=== PATIENT | male | born 1990 ===

== ENCOUNTER 2022-03-11 11:29 | Inpatient (IN) | payer MEDICAID, OTHER ==
[2022-03-11] MEDS ORDERED: LORazepam 1 MG TAB PO PRN (12:49)
[2022-03-11] MEDS ORDERED: MAGNESIUM HYDROXIDE 2,400 MG/10 ML CUP PO PRN (12:49)
[2022-03-11] MEDS ORDERED: HALOPERIDOL LACTATE 5 MG/ML 1 ML VIAL IM PRN (12:49)
[2022-03-11] MEDS ORDERED: ACETAMINOPHEN TAB 325 MG TAB PO PRN (12:49)
[2022-03-11] MEDS ORDERED: MAG HYDROX/AL HYDROX/SIMETH 30 ML CUP PO PRN (12:49)
[2022-03-11] MEDS ORDERED: LORazepam 2 MG/ML INJ IM PRN (12:53)
[2022-03-11 16:48] VITALS: BP 117/68; PULSE 83; RESP 16; TEMP 97.4
--- NOTE | 2022-03-12 01:38 | P.CONS ---
History of Present Illness - Reason for Consult Consult date: 03/11/22 - History of Present Illness Patient is a 31-year-old male with a PMH of schizophrenia who was transferred from [facility] where he had presented previously for psychosis. The patient was seen in the mental health unit. He was guarded during the interview and did not offer any complaints. He reported hearing voices but did not wish to elaborate further. He denied experiencing chest discomfort, shortness of breath, fever, chills, cough, nausea, vomiting, abdominal pain, diarrhea. He also denied tobacco or alcohol use. Denied any substance use as well. Review of systems: Pertinent positives and negatives as discussed in HPI, a complete review of systems was performed and all other systems are negative. Physical examination: General: non toxic, no distress, appears at stated age, normal weight Derm: no unusual rashes/lesions no unusual ecchymoses, warm, dry Head: atraumatic, normocephalic, symmetric Eyes: EOMI, no lid lag, anicteric sclera, pupils equal round reactive to light ENT: Nose and ears atraumatic, no thrush, no pharyngeal erythema Cardiovascular: S1S2 reg, no murmur, positive posterior tibial pulse bilateral, no edema, capillary refill less than 2 seconds Lungs: CTA bilateral, no rhonchi, no rales , no accessory muscle use Abdominal: soft, nontender to palpation, no guarding Ext: no gross muscle atrophy, muscle strength 5 out of 5 in all 4 extremities grossly, no contractures, Neuro: CN II-XI grossly intact, light touch intact all 4 extremities, finger to nose within normal limits, Psych: Alert, oriented, guarded affect Assessment/plan Psychosis -As per psychiatry Thank you for allowing us to participate in the care of this patient. We will follow peripherally. Do not hesitate to contact us with questions. Someone can be reached from the [facility] hospitalist group at all hours of the day at [phone]. Past Medical History - Past Family History Father Family Medical History: Hypertension Medications and Allergies Home Medications Medication Instructions Recorded Confirmed Type fluPHENAZine [Prolixin 5MG] 10 mg PO HS 03/11/22 03/11/22 History Allergies Allergy/AdvReac Type Severity Reaction Status Date / Time Fish Containing Products Allergy Unknown Verified 03/11/22 12:48 [Fish] Physical Exam Vitals: Vital Signs Temp Pulse Resp BP Pulse Ox 03/11/22 16:45 97.4 F L 83 16 117/68 98 Intake and Output 03/11/22 03/11/22 03/12/22 14:59 22:59 06:59 Other: Weight 70.465 kg
--- NOTE | 2022-03-12 12:36 | P.HP ---
Psychiatric H&P - . H&P Date: 03/12/22 History & Physical: Allergies Allergy/AdvReac Type Severity Reaction Status Date / Time Fish Containing Products Allergy Unknown Verified 03/11/22 12:48 Fish Vital Signs Temp 97.4 F L 03/11/22 16:45 Pulse 83 03/11/22 16:45 Resp 16 03/11/22 16:45 BP 117/68 03/11/22 16:45 Pulse Ox 98 03/11/22 16:45 FiO2 Intake & Output 03/11/22 03/12/22 03/12/22 18:59 06:59 18:59 Weight 70.465 kg Laboratory Last Values Estimated Ave Glu mg/dL 85 03/12/22 07:11 Hemoglobin A1c 4.6 % (0.0-6.0) 03/12/22 07:11 TSH 3.210 mIU/L (0.465-4.680) 03/12/22 07:11 03/12/22 11:46 IDENTIFYING DATA: Patient is a 31-year-old -Lebanese male who currently lives with his mother in a house has no kids and his collecting Social Security HPI: Patient presented to the hospital as a transfer from [facility] with the petition that states that patient has been hearing voices and has been noncompliant and not taking care of himself. Patient was admitted involuntarily on a petition and certificate. Patient was seen today by health technical writer and agreeable to speak in the office. Patient appeared to have poor hygiene and grooming. It a constricted affect. He was minimizing his need for hospitalization and treatment. He had a poor understanding of his treatment. He states that his mother wanted him to come to the hospital "to find some help". He is fairly concrete and vague and guarded. He states that he has been hearing voices for several years. He was minimizing the voices. He claimed to be unsure about taking medications. He denies any depression or anxiety today. He couldn't sleep and appetite are fair. He states that he is taking Prolixin at times at home. Patient denies any suicidal or homicidal ideations intent or plan. At this time patient denies any visual hallucinations. Patient denies any flight of ideas racing thoughts and increased in goal directed behavior. Patient admits to using cigarettes daily and alcohol occasionally PAST PSYCHIATRIC HISTORY: Patient states that he has history of schizophrenia. Patient is currently on Prolixin 10 mg daily at bedtime. He states that he has been psychiatrically hospitalized multiple times in the past his last admission was in [facility] one year ago. Patient denies any psychiatric outpatient follow-up. Patient denies any history of suicide attempts in the past. PMH: As per medicine H&P ALLERGIES: as per EMR CHEMICAL DEPENDENCY HISTORY: as per HPI FAMILY PSYCHIATRIC/SUBSTANCE USE HISTORY: denies SOCIAL HISTORY: Patient was born and raised in [facility]. Patient apparently lives with his mom in a house, has no kids, collects SSI. Patient claims that he has been to [facility] several times in the past his last was in 2008. He claims that he completed up to the ninth grade in school. MENTAL STATUS EXAM: General Appearance: Patient appears to be thin, stated age is alert, vague and guarded. Patient appears to have poor hygiene and grooming. Behavior: Patient is seated without any agitated behavior. Vague. Evasive Speech: Patient's speech is fluent and nonpressured. [place] and monotone Mood/Affect: Patient reports their mood is "okay", affect is congruent and constricted. Suicidality/Homicidality: Patient denies having any homicidal ideation intent or plan. Denies any suicidal ideations intent or plan Perceptions: Patient denies any visual hallucinations and admits to auditory hallucinations. Though content/process: Positive content, concrete. Logical. Memory and concentration: AOX3, grossly intact for the purposes of this session. Can spell "WORLD" backwards Judgment and insight: poor STRENGTHS/WEAKNESSES: strength is that patient is resilient. Weakness is that patient has poor judgment and is impulsive INTELLECT: average IMPRESSIONS: Schizophrenia Nicotine dependence PLAN: -Patient is admitted under involuntary status to MHU for stabilization of psychiatric symptoms and safety. Patient has not signed adult voluntary form and medication consent and is placed in patient's chart. A second certification was completed and along with petition will be filed for court. -Medications : Will start patient on paliperidone by mouth 3 mg daily at bedtime for psychosis. Plan will be to transition patient on 2 long-acting injection to ensure compliance. -Ativan and Haldol PRN for agitation/aggression -Patient was informed of the risks, benefits and side effects of the medication and patient verbally consented to taking the medications. Patient signed med consent form and was placed in chart. -Internal Medicine consult to perform medical evaluation and physical. -NRT - nicotine patch -SW on board for discharge planning. Encourage patient to participate in groups to work on coping skills. Will await deferral and court date.
[2022-03-12 15:40] LABS: Chol/HDL Ratio 1.98 Ratio; LDL Cholesterol,Calculated 60.6 mg/dL (0.0-131.0); VLDL Calculation 12.14 mg/dL (5.00-40.00)
[2022-03-12] MEDS ORDERED: PALIPERIDONE 3 MG TAB.ER.24 PO SCH (21:00)
[2022-03-13] MEDS ORDERED: traZODone HCL 50 MG TAB PO PRN (11:09)
--- NOTE | 2022-03-13 11:15 | P.PN ---
Progress Note - Text Progress Note Date: 03/13/22 Interval History: Patient was seen wandering the hallways and was directable and agreeable to sp claire with content writer in the office. Patient continues to be fairly constricted in his affect. He is not responding to internal stimuli to it today. He claims that he is doing "fine" and is denying any depression or anxiety today. He asked questions about his medications and about potential discharge. He states that he slept fairly last night however according to nurses, patient had a difficult time sleeping and required prn meds. At this time patient denies any suicidal or homical ideations, intent or plan. Patient denies any auditory, visual hallucinations and denies any paranoia or delusions. Patient denies any side effects from the medications and has been compliant with meds. Mental Status Exam: General Appearance: Patient appears to be thin, stated age is alert, vague . Patient appears to have improving hygiene and grooming. Behavior: Patient is seated without any agitated behavior. Evasive Speech: Patient's speech is fluent and nonpressured. [place] and monotone Mood/Affect: Patient reports their mood is "ok", affect is congruent and constricted. Suicidality/Homicidality: Patient denies having any homicidal ideation intent or plan. Denies any suicidal ideations intent or plan Perceptions: Patient denies any visual hallucinations and admits to auditory hallucinations. Though content/process: Positive content, concrete. Logical. Memory and concentration: AOX3, grossly intact for the purposes of this session. Judgment and insight: Chronically poor, improving mildly IMPRESSIONS: Schizophrenia Nicotine dependence Plan: -Patient continues to meet criteria for inpatient psychiatric admission for symptom stabilization and safety. Patient has not signed adult voluntary form and medication consent and was placed in patient's chart. -Medications: Increased paliperidone by mouth to 6 mg daily at bedtime for psychosis. Plan will be to transition patient on 2 long-acting injection to ensure compliance. Added trazodone 50 mg daily at bedtime when necessary for insomnia. -When necessary Ativan and Haldol for agitation/aggression. -NRT - nicotine patch -SW on board for discharge planning. Encouraged the patient to participate in milieu. Currently awaiting deferral with workers compensation attorney and court date.
[2022-03-13] MEDS ORDERED: PALIPERIDONE 6 MG TAB.ER.24 PO SCH (21:00)
[2022-03-14] MEDS ORDERED: PALIPERIDONE IM 234 MG/1.5 ML SYG IM STA (11:11)
--- NOTE | 2022-03-14 11:20 | P.DS ---
Providers Date of admission: 03/11/22 16:22 Expected date of discharge: 03/14/22 Attending physician: Bogdan Olivier MD Consults: 03/11/22 12:49 Consult Physician Routine Consulting Provider: Vonnie Hoffman Consult Reason/Comments: new admission, medical consult Do you want consulting provider notified?: Yes Primary care physician: Stated None - Discharge Diagnosis(es) (1) Schizophrenia Current Visit: Yes Status: Acute Priority: High (2) Nicotine dependence Current Visit: Yes Status: Acute Priority: Low Hospital Course: Admission HPI: Admission note was completed by copywriter "Patient is a 31-year-old - Albanian male who currently lives with his mother in a house has no kids and his collecting Social Security. Patient presented to the hospital as a transfer from [facility] with the petition that states that patient has been hearing voices and has been noncompliant and not taking care of himself. Patient was admitted involuntarily on a petition and certificate. Patient was seen today by copywriter and agreeable to speak in the office. Patient appeared to have poor hygiene and grooming. It a constricted affect. He was minimizing his need for hospitalization and treatment. He had a poor understanding of his treatment. He states that his mother wanted him to come to the hospital "to find some help". He is fairly concrete and vague and guarded. He states that he has been hearing voices for several years. He was minimizing the voices. He claimed to be unsure about taking medications. He denies any depression or anxiety today. He couldn't sleep and appetite are fair. He states that he is taking Prolixin at times at home. Patient denies any suicidal or homicidal ideations intent or plan. At this time patient denies any visual hallucinations. Patient denies any flight of ideas racing thoughts and increased in goal directed behavior. Patient admits to using cigarettes daily and alcohol occasionally" Hospital course: Upon admission to the unit patient was admitted involuntarily on a petition and certificate and a second certificate was completed and faxed with the courts. Patient ended up signing a deferral with the contracts attorney on day of discharge and agreeing to treatment. Patient got along well with other patients on the unit and followed unit protocol. Patient was compliant with the medications and denied any side effects throughout hospital course. Patient was started on paliperidone by mouth 6 mg daily at bedtime for psychosis. Patient was transitioned onto Invega Sustenna and given a loading dose of 234 mg IM on day of discharge and will be due for his next dose on 03/21 of 156 mg IM and his monthly maintenance dose of 117 mg IM on 04/11. Patient spoke of his stressors and engaged in therapy both group and individual. Patient was also seen by medical team for history and physical exam. Throughout the course of the hospitalization patient gradually improved with regards to psychosis, hallucinations, mood, sleep and returned back to their baseline level of functioning. On the day of discharge patient denied any suicidal or homicidal ideations intent or plan denied any auditory or visual hallucinations. Patient endorsed wanting to live for his future and food. The patient denied any access to guns or weapons. Patient denied any paranoia and did not endorse any delusions. Patient does not have a significant history of substance abuse and was counseled on abstaining from all substances including alcohol and marijuana. Patient was also counseled on the medications and need for regular compliance and was encouraged to follow-up with their outpatient appointment for mental health and also for primary care. Prior to discharge a family meeting will be arranged by director social welfare to answer any questions and ensure safety upon discharge. Mental status exam: General Appearance: Patient appears to be stated age is alert, pleasant, and cooperative. Patient is in no acute distress and has improved hygiene and grooming Behavior: Patient is calmly seated without any agitated behavior. Speech: Patient's speech is fluent and nonpressured. Mood/Affect: Patient reports their mood is "good", affect is congruent Suicidality/Homicidality: Patient denies having any suicidal or homicidal ideation intent or plan. Perceptions: Patient denies any auditory or visual hallucinations. Though content/process: There is no evidence of any delusional thought content and thought process is linear and goal-directed. [place] Memory and concentration: AOX3, grossly intact for the purposes of this session. Can spell "WORLD" backwards correctly. Judgment and insight: chronically poor, however has improved with guarded prognosis Impression: Schizophrenia Nicotine dependence Plan: -Continue with discharge today as patient has improved and stabilized psychiatrically and is not currently an imminent threat to himself and/or others. -Continue medications: Continue with paliperidone by mouth 6 mg daily at bedtime for 3 more days then discontinue. Patient was transitioned onto Invega Sustenna and given a loading dose of 234 mg IM on day of discharge and will be due for his next dose on 03/21 of 156 mg IM and his monthly maintenance dose of 117 mg IM on 04/11. Will give a 14 day supply of trazodone 50 mg daily at bedtime when necessary for insomnia. -Patient was counseled on the need for medication compliance and appropriate follow-up at mental health and also primary care for medical issues. Patient verbalized understanding and agreed. -Social work to arrange for and conduct family meeting to ensure safety upon discharge and answer any questions/concerns. Social work also to arrange for patients follow up appointments with [facility] for psychiatric care along with follow up with primary care provider. -Patient counseled on abstaining from recreational drugs and marijuana and alcohol. Was informed/educated on the adverse effects on their physical and mental health. Patient verbally agreed and understood. -Patient was instructed to return to the hospital or seek immediate medical care if their psychiatric or medical symptoms do worsen or reoccur. Allergies Allergy/AdvReac Type Severity Reaction Status Date / Time Fish Containing Products Allergy Unknown Verified 03/11/22 12:48 [Fish] Laboratory Results Estimated Ave Glu mg/dL 85 03/12/22 07:11 Hemoglobin A1c 4.6 % (0.0-6.0) 03/12/22 07:11 Triglycerides 60.70 mg/dL (0.00-149.00) 03/12/22 07:11 Cholesterol 147.00 mg/dL (0.00-200.00) 03/12/22 07:11 LDL Cholesterol, Calc 60.6 mg/dL (0.0-131.0) 03/12/22 07:11 VLDL Cholesterol, Calc 12.14 mg/dL (5.00-40.00) 03/12/22 07:11 HDL Cholesterol 74.30 mg/dL (40.00-60.00) H 03/12/22 07:11 Cholesterol/HDL Ratio 1.98 Ratio 03/12/22 07:11 TSH 3.210 mIU/L (0.465-4.680) 03/12/22 07:11 Vital Signs Temp 97.4 F L 03/11/22 16:45 Pulse 83 03/11/22 16:45 Resp 16 03/11/22 16:45 BP 117/68 03/11/22 16:45 Pulse Ox 98 03/11/22 16:45 FiO2 Patient Condition at Discharge: Stable Plan - Discharge Summary New Discharge Prescriptions: New traZODone HCL [Desyrel] 50 mg PO HS PRN #14 tab PRN Reason: Insomnia Paliperidone [Invega] 6 mg PO HS 3 Days tab Paliperidone IM [Invega Sustenna] 156 mg IM ONCE #1 each Paliperidone Palmitate [Invega Sustenna] 117 mg IM QMONTHLY #1 each Discontinued fluPHENAZine [Prolixin 5MG] 10 mg PO HS Discharge Medication List Paliperidone IM [Invega Sustenna] 156 mg IM ONCE #1 each 03/14/22 [Rx] Paliperidone Palmitate [Invega Sustenna] 117 mg IM QMONTHLY #1 each 03/14/22 [Rx] Paliperidone [Invega] 6 mg PO HS 3 Days tab 03/14/22 [Rx] traZODone HCL [Desyrel] 50 mg PO HS PRN #14 tab 03/14/22 [Rx] Follow up Appointment(s)/Referral(s): intake,intake [Other] - 04/05/22 2:30 pm Activity/Diet/Wound Care/Special Instructions: Activity and diet as tolerated. Avoid the use of street drugs and alcohol. Take all medications as prescribed. When you are in need of refills on your medications please contact your medical provider and/or outpatient psychiatrist to have this done. Please go to scheduled outpatient appointment for aftercare treatment. If symptoms return or become worse, call the crisis line at and/or go to the nearest emergency room for evaluation Discharge Disposition: HOME SELF-CARE
== END 2022-03-14 17:35 | disposition home or self-care (01) | DRG 885 ==
LOC: 3MHU 16:22
PROVIDERS: ADMIT Psychiatry & Neurology Psychiatry; ATTEND Psychiatry & Neurology Psychiatry
DX: F20.9 Schizophrenia, unspecified (principal); F17.210 Nicotine dependence, cigarettes, uncomplicated; Z91.19 Patient's noncompliance with other medical treatment and regimen
CPT/HCPCS: 80061; 83036; 84443